=== PATIENT | male | born 1985 | race African-American/Black ===

== ENCOUNTER 2017-08-31 14:45 | Emergency (ER) | payer SELFPAY ==
[~2017-08-31] VITALS: Ht 165.1 cm; Wt 69.3 kg
[2017-08-31 18:06] VITALS: BP 137/86
== END 2017-08-31 17:58 | disposition home or self-care (01) ==
LOC: EME 14:45
PROC: 2W3JX1Z Immobilization of Right Finger using Splint (ICD-10-PCS; principal; 2017-08-31)
DX: S60.041A Contusion of right ring finger without damage to nail, initial encounter (principal); W22.8XXA Striking against or struck by other objects, initial encounter
CPT/HCPCS: 73140; 99281; 99284